=== PATIENT | female | born 2000 | race Caucasian/White ===

== ENCOUNTER → 2024-01-26 15:05 | Outpatient (CLI) | payer OTHER, MEDICAID, SELFPAY ==
[2024-01-26 15:38] LABS: Add Manual Diff / Slide Review NO; Basophils Absolute Auto 0 /uL (0-100); Basophils Percent Auto 0.4 % (0-2); Eosinophils Absolute Auto 0 /uL (0-450); Eosinophils Percent Auto 0.2 % (2-4); Hematocrit 35.3 % (36-46); Hemoglobin 11.9 g/dL (12.0-16.0); Lymphocytes Absolute Auto 1700 /uL (1100-4500); Lymphocytes Percent Auto 15.9 % (25-40); Mean Corpuscular HGB Conc 33.9 % (30-36); Mean Corpuscular Volume 85.7 fL (80-100); Monocytes Absolute Auto 900 /uL (0-900); Monocytes Percent Auto 8.2 % (3-14); Neutrophils Absolute Auto 8000 /uL (1500-7000); Neutrophils Percent Auto 75.3 % (50-75); Platelet Count 267 X10^3/uL (150-400); Red Blood Cell Count 4.11 X10^6/uL (4.0-5.2); Red Cell Distribution Width 13.6 % (11.6-14.8); White Blood Cell Count 10.6 X10^3/uL (4.5-11.0)
[2024-01-27 15:23] LABS: HIV 1 & 2 Ab/Ag 4th Gen Combo NEGATIVE (NEGATIVE); Hep C Virus Ab w/Reflex Quant NEGATIVE s/c (NEGATIVE); Hepatitis B Surface Antigen NEGATIVE s/c (NEGATIVE); Rubella Antibody IgG 11.9 IU/mL (>15)
[2024-01-28 06:36] LABS: RPR Screen Non Reactive (Non Reactive)
[2024-01-28 07:11] LABS: Varicella IgG Antibody Reactive (Non Reactive)
== END ==
PROVIDERS: Referring Provider Specialist; Visit Provider Specialist
DX: Z34.00 Encounter for supervision of normal first pregnancy, unspecified trimester (principal)
CPT/HCPCS: 36415; 80055; 86787; 86803; 86850; 86900; 86901; 87086; 87389

== ENCOUNTER → 2024-04-21 11:52 | Outpatient (CLI) | payer OTHER, SELFPAY ==
--- NOTE | 2024-04-21 11:53 | DI.US.S_ITS ---
PROCEDURE: US OB >= 14 WEEKS FETUS INDICATIONS: 20 week anatomy scan OUTSIDE/PRIOR DATING DATA: Last menstrual period (LMP): 11/28/2023. LMP-based estimated date of delivery (LE): 09/03/2024 working LE. First dating scan (date and location): 01/26/2024. Estimated date of delivery (LE) from first dating scan: 08/31/2024. TECHNIQUE: Real-time scanning was performed of the fetus, with image documentation and biometric measurements. COMPARISON: [facility], US, OB >= 14 WEEKS FETUS, 03/22/2024, 15:27. FINDINGS: General: A single living intrauterine gestation is present. Presentation: Transverse. Placenta: Placental position is anterior fundal , without previa. Amniotic fluid index: 13.2 cm, normal range is 5-24 cm. Single deepest vertical pocket is 4.7 cm. heart rate: 150 beats per minute. Maternal cervical canal: 4.6 cm long. Normal lower limit is 2.5 cm. biometrics: Biparietal diameter: 4.9 centimeters, 20 weeks and 5 days Head circumference: 18.9 centimeters, 21 weeks and 1 day Abdominal circumference: 17.9 centimeters, 22 weeks and 5 days Femur length: 3.7 centimeters, 21 weeks and 5 days Clinically estimated gestational age: 20 weeks and 5 days Composite gestational age from present scan: 21 weeks and 4 days Estimated weight and percentile: 474 grams, 98 percent Anatomic survey: Neuro: Ventricles are non-dilated at less than 10 mm. Cisterna magna is normal at 3-11 mm. Cerebellum is normal in size and morphology. Nuchal skin fold: Normal at less than 6 mm between 14-21 weeks gestational age. Face: Nose and lips, facial profile are normal. Spine: Skin line overlying the spine is not well seen. Heart: four-chamber view and LVOT are within normal limits. RVOT probably normal, but not well seen on this single image. Diaphragm: Diaphragm is intact. Stomach: Left-sided stomach is present. Kidneys: No hydronephrosis. Normal is less than 5 mm in 2nd trimester, less than 7 mm in 3rd trimester. Cord: 3-vessel cord has orthotopic insertion. Bladder: Normal in size. Extremities: All 4 extremities identified. IMPRESSION: Living intrauterine gestation at 20 weeks and 5 days. EFW is at the 98 percent, greater than expected, driven primarily by the large abdominal circumference. Follow-up is recommended for growth. Normal TITUS. RVOT and skin line overlying the sacral spine not well seen. Follow-up recommended. Dictated by: Jordan Alfaro M.D. on 04/22/2024 at 7:57 Approved by: Jordan Alfaro M.D. on 04/22/2024 at 8:01
[2024-04-24 10:08] LABS: Candida species Positive (Negative); Gardnerella vaginalis Positive (Negative); Trichomoas vaginalis Negative (Negative)
== END ==
LOC: US 11:52
PROVIDERS: Referring Provider Obstetrics & Gynecology; Visit Provider Obstetrics & Gynecology
DX: O99.891 Other specified diseases and conditions complicating pregnancy (principal); Z3A.20 20 weeks gestation of pregnancy; N89.8 Other specified noninflammatory disorders of vagina
CPT/HCPCS: 76811; 87480; 87510; 87660

== ENCOUNTER → 2024-05-19 08:53 | Outpatient (CLI) | payer OTHER, SELFPAY ==
[2024-05-19 10:21] LABS: Hematocrit 33.8 % (36-46); Hemoglobin 11.2 g/dL (12.0-16.0)
[2024-05-19 10:40] LABS: GTT (PREG) 1 Hour PP 50gm Dose 102 mg/dL (76-139)
== END ==
PROVIDERS: Referring Provider Obstetrics & Gynecology; Visit Provider Obstetrics & Gynecology
DX: Z34.02 Encounter for supervision of normal first pregnancy, second trimester (principal); Z3A.26 26 weeks gestation of pregnancy
CPT/HCPCS: 36415; 82950; 85014; 85018; 86850

== ENCOUNTER 2024-07-26 17:25 | Outpatient (CLI) | payer OTHER, SELFPAY | END 2024-07-26 17:55 | disposition home or self-care (01) | LOC: OB 07-27 06:32 | PROVIDERS: PCP Family Medicine; Referring Provider Obstetrics & Gynecology; Visit Provider Obstetrics & Gynecology | DX: O36.8130 Decreased fetal movements, third trimester, not applicable or unspecified (principal); Z3A.34 34 weeks gestation of pregnancy | CPT/HCPCS: 59025; G0378; G0379 ==

== ENCOUNTER → 2024-08-11 14:39 | Outpatient (CLI) | payer OTHER, SELFPAY ==
[2024-08-12 12:18] LABS: Strep Grp B PCR NEG for Grp B Strep
== END ==
PROVIDERS: PCP Family Medicine; Visit Provider Specialist
DX: Z34.93 Encounter for supervision of normal pregnancy, unspecified, third trimester (principal); Z3A.36 36 weeks gestation of pregnancy
CPT/HCPCS: 87653

== ENCOUNTER 2024-08-29 01:41 | Inpatient (IN) | payer OTHER, SELFPAY ==
[2024-08-29 02:19] VITALS: BP 120/82
[2024-08-29] MEDS: LACTATED RINGERS 1,000 ML 100 ML IV (02:40)
[2024-08-29 03:02] LABS: Add Manual Diff / Slide Review NO; Basophils Absolute Auto 100 /uL (0-100); Basophils Percent Auto 0.6 % (0-2); Eosinophils Absolute Auto 0 /uL (0-450); Eosinophils Percent Auto 0.1 % (2-4); Hematocrit 31.9 % (36-46); Hemoglobin 10.7 g/dL (12.0-16.0); Lymphocytes Absolute Auto 2200 /uL (1100-4500); Lymphocytes Percent Auto 13.2 % (25-40); Mean Corpuscular HGB Conc 33.4 % (30-36); Mean Corpuscular Hemoglobin 27.9 PG (26-34); Mean Corpuscular Volume 83.4 fL (80-100); Monocytes Absolute Auto 1100 /uL (0-900); Monocytes Percent Auto 6.3 % (3-14); Neutrophils Absolute Auto 13300 /uL (1500-7000); Neutrophils Percent Auto 79.8 % (50-75); Platelet Count 270 X10^3/uL (150-400); Red Blood Cell Count 3.83 X10^6/uL (4.0-5.2); Red Cell Distribution Width 14.8 % (11.6-14.8); White Blood Cell Count 16.6 X10^3/uL (4.5-11.0)
--- NOTE | 2024-08-29 04:27 | PM.AN.REGBLK ---
[facility] <Milagros Bennett CRNA - Last Filed: 08/30/24 12:38> Pre-procedure PMH/ROS narrative: Healthy 23yr old requesting CSE for labor. G1. No problems with PSH/Anesthesia history narrative: Appendectomy ASA Class: II Labs: Hct 31.9 % (36-46) L 08/29/24 02:40 Plt Count 270 X10^3/uL (150-400) 08/29/24 02:40 Medications: Current Medications Generic Name Dose Route Start Last Admin Trade Name Freq PRN Reason Stop Dose Admin Calcium Carbonate 1,000 mg 08/29/24 02:50 Calcium Carbonate 500 Mg Tab PO Q2HR PRN Dyspepsia Carboprost Tromethamine 250 mcg 08/29/24 02:50 Carboprost 250 Mcg/Ml Ampul IM Q90M PRN Bleeding Diphenhydramine HCl 25 mg 08/29/24 04:30 Diphenhydramine 50 Mg/Ml Vial IV 08/30/24 04:31 Q30MIN JAY Fentanyl 50 mcg 08/29/24 02:50 Fentanyl 100 Mcg/2 Ml Inj IV Q1H PRN Pain, Moderate (4-6) Lactated Ringer's 1,000 mls @ 100 mls/hr 08/29/24 03:00 08/29/24 02:40 Lactated Ringers IV 08/29/24 12:59 100 mls/hr CONT JAY Administration Oxytocin/Lactated Ringer's 30 unit in 500 mls @ 200 mls/hr 08/29/24 02:50 Oxytocin Premix IV CONT PRN Bleeding Protocol Tranexamic Acid 1,000 mg/ 100 mls @ 600 mls/hr 08/29/24 02:50 Sodium Chloride IV NOW PRN Bleeding Lidocaine HCl 20 ml 08/29/24 02:50 Lidocaine 1% 20 Ml INJ INTRA-OP PRN Post Delivery Methylergonovine Maleate 0.2 mg 08/29/24 02:50 Methylergonovine 0.2 Mg Tablet PO Q6HR PRN Heavy Bleeding Methylergonovine Maleate 0.2 mg 08/29/24 02:50 Methylergonovine 0.2 Mg/Ml Vial IM NOW PRN Bleeding Metoclopramide HCl 10 mg 08/29/24 04:24 Metoclopramide 10 Mg/2 Ml Inj IV 08/30/24 04:25 Q4H PRN Nausea Mineral Oil 30 ml 08/29/24 02:50 Mineral Oil 30 Ml Udc TOP PRN PRN Version Misoprostol 800 mcg 08/29/24 02:50 Misoprostol 200 Mcg Tablet MO NOW PRN Bleeding Misoprostol 400 mcg 08/29/24 02:50 Misoprostol 200 Mcg Tablet SL NOW PRN Bleeding Nalbuphine HCl 5 mg 08/29/24 04:24 Nalbuphine 20 Mg/Ml Ampul IV Q6H PRN Pruritus Naloxone HCl 0.2 mg 08/29/24 02:50 Naloxone 0.4 Mg/Ml Vial IV Q2MIN PRN Opiate Reversal Naloxone HCl 0.4 mg 08/29/24 04:24 Naloxone 0.4 Mg/Ml Vial IV Q2MIN PRN Opiate Reversal Ondansetron HCl 4 mg 08/29/24 02:50 Ondansetron 4 Mg/2 Ml Inj IV Q4HR PRN Nausea And Vomiting Ondansetron HCl 4 mg 08/29/24 05:00 Ondansetron 4 Mg/2 Ml Inj IV 08/29/24 09:01 Q4HR JAY Oxytocin 10 unit 08/29/24 02:50 Oxytocin 10 Unit/Ml Vial IM NOW PRN Bleeding Allergies: Allergies Allergy/AdvReac Type Severity Reaction Status Date / Time No Known Drug Allergies Allergy Verified 08/29/24 02:21 Procedure Insertion date: 08/29/24 Insertion time: 03:54 Prep/Local: 1% lidocaine (chloroprep) Interspace: L3-4 Patient position: sitting Needle: 17 gauge Tuohy (27g Bala) Loss of resistance with: saline FANG at (cm): 8 Catheter placed at SKIN (cm): 14 Catheter in SPACE (cm): 6 Initial Medications TEST DOSE time: 03:56 TEST DOSE: 1.5% lidocaine with epinephrine 1:200k (mL): 3 BOLUS DOSE time: 03:53 BOLUS DOSE (mL): 1 BOLUS DOSE med: 0.25% bupivacaine (CSE dose) Infusion INFUSION: 0.125% bupivacaine and with fentanyl 2 mcg/mL Initial rate (mL/hr): 10 Subsequent interventions: Remaining 2 cc test dose given at 0400 5cc .25% marcaine at 0650 Post-procedure Anesthesia date START: 08/29/24 Anesthesia time START: 03:32 <Lauren Mcdowell CRNA - Last Filed: 08/29/24 17:06> Post-procedure Anesthesia date END: 08/29/24 Anesthesia time END: 10:15 Post-procedure Anesthesia Assessment: Yes CV function: HR/BP stable, Yes Resp function: RR/sat/airway adequate, Yes Post-op hydration adequate, Yes Pain control adequate, Yes Nausea & vomiting absent, Yes Temperature > 36 C, Yes Mental status appropriate and Yes Anesthesia complications
[2024-08-29] MEDS: OXYTOCIN PREMIX 30 UNIT/500 ML PLAST..BAG IV (08:53)
--- NOTE | 2024-08-29 09:07 | P.HPOB_ITS ---
OB HPI Date/Time Date of admission: 08/29/24 Date Patient Seen: 08/29/24 Time Patient Seen: 08:30 History of Present Condition Chief complaint: labor LE Calculator 2 Estimated Delivery Date Method Current WG Current Estimate 09/03/24 LMP (Certain) 39w 2d Other Estimates 08/31/24 Ultrasound #1 39w 5d Estimated Gestational Age (weeks): 39+2 : 1 Para: 0 Narrative: Spontaneous rupture of membranes just after midnight, clear fluid 3 cm dilated on admission care: good care, initiated at week # (8), number of visits (12) and pounds weight gain (49) Dating criteria OB: LMP confirmed by 1st trimester US Ultrasounds: normal 1st trimester US and normal mid trimester US Abnormal ultrasound findings: LGA Obstetrical complications: other (LGA) Medical complications OB: none Preadmission Labs Last OB Lab Results: 2 Blood Type B Positive 08/29/24 02:40 Antibody Screen Negative 08/29/24 02:40 Hct 31.9 % (36-46) L 08/29/24 02:40 Hgb 10.7 g/dL (12.0-16.0) L 08/29/24 02:40 Hep Bs Antigen Negative s/c (NEGATIVE) 01/26/24 15:13 Hepatitis C Antibody Negative s/c (NEGATIVE) 01/26/24 15:13 Rubella Antibody 11.9 IU/mL (>15) L 01/26/24 15:13 VZV IgG Antibody Reactive (Non Reactive) 01/26/24 15:13 Glucose 1 Hr 50 gm 102 mg/dL (76-139) 05/19/24 09:45 Group B Strep (PCR) Neg for grp b strep 08/11/24 14:39 -: Chlamydia screen: negative, Gonorrhea screen: negative and Urine: negative -: PAP smear: Normal External Labs -: Urine: negative Evaluation Evaluation Baseline heart rate: 135 Variability: Moderate (11-25) monitor accelerations: Present Monitor Decelerations: Late (few) Contraction Frequency (minutes): 3 Uterine Contraction Intensity: Strong/Firm Status: Category l Dilation (cm): 10 Effacement (%): 100 station: 0 PFSH Medical History (Updated 08/04/24 @ 09:04 by Odessa Pierre MD) H. pylori infection Chronic sinusitis Surgical History (Updated 01/24/24 @ 13:08 by Jessica Stock RN) History of appendectomy (~2018) Family History (Updated 01/24/24 @ 13:30 by Jessica Stock RN) Father Hypertension History of appendectomy Mother History of appendectomy Pre-eclampsia Brother Low bone density Bone fracture Social History marital status: number of children: 0 household members: spouse lives independently: Yes caregiver/support person: No housing: house pets and animals: No education level: college occupational status: employed current occupational exposures/hazards: Yes special mario needs: No travel history: recent seatbelt use: always helmet use: No water heater temp set < 120 deg: Yes working smoke detector in home: Yes fire extinguisher in home: Yes carbon monox detector in home: Yes firearms in home: No do you feel safe at home: Yes Smoking Status: Never smoker second hand exposure: No alcohol intake: never substance use type: does not use during the past year weight has: remained stable well-balanced diet: daily or most days daily servings fruits/ve or more times/day caffeine: Yes (not since becoming , but usually likes a single espresso in AM) Type(s) of exercise: aerobic Meds Home Medications and Allergies Home Medications Medication Instructions Recorded Confirmed Type vitamin-ferrous sulfate 1 tab PO DAILY 01/24/24 08/29/24 History 27 mg iron-folic acid 0.8 mg tablet valacyclovir 500 mg tablet 500 mg PO DAILY herpes suppression 08/04/24 08/29/24 Rx (Valtrex) #30 tabs Allergies Allergy/AdvReac Type Severity Reaction Status Date / Time No Known Drug Allergies Allergy Verified 08/29/24 02:21 OB Exam Narrative Exam Narrative: Generally: Comfortable with epidural Fundal height: 42 cm Estimated weight 9-1/2 lb Extremities: 1+ edema Objective Labs 08/29/24 02:40 Labs: Laboratory Results - last 24 hr 08/29/24 02:40 WBC 16.6 H RBC 3.83 L Hgb 10.7 L Hct 31.9 L MCV 83.4 MCH 27.9 MCHC 33.4 RDW 14.8 Plt Count 270 Neut % (Auto) 79.8 H Lymph % (Auto) 13.2 L Sully % (Auto) 6.3 Eos % (Auto) 0.1 L Baso % (Auto) 0.6 Neut # (Auto) 83917 H Lymph # (Auto) 2200 Sully # (Auto) 1100 H Eos # (Auto) 0 Baso # (Auto) 100 Blood Type B Positive Antibody Screen Negative Assessment and Plan Assessment and Plan Assessment and Plan narrative: Assessment: 23-year-old 1 para 0 at 39-,2/7 weeks gestation entering second stage of labor LGA GBS negative Plan: Expected management to spontaneous vaginal delivery No operative delivery Time-Based Coding :: [TOTAL MINUTES] spent with patient and on the chart (including review of chart, obtaining history, exam, reviewing outside data, placing orders, documenting exam and treatment plan, and counseling patient) on [DATE].
[2024-08-29] MEDS: DERMOPLAST SPRAY 20% 60 ML 1 SPRAY TOP (12:05)
[2024-08-29] MEDS: WITCH HAZEL/GLYCERIN PADS 1 EACH TOP (12:05)
--- NOTE | 2024-08-29 15:58 | PM.OBPRVD ---
Events: Other (LGA) Labor & Delivery Delivery date: 08/29/24 Delivery Time: 09:59 Intrapartal Events: None Cervical ripening method: none Induction method: none Delivery augmentation: pitocin Route of delivery: Episiotomy description: None L&D Laceration Description: Perineal - 2nd Degree and Vaginal - 2nd Degree Delivery repair: vicryl and chromic Quantitative Blood Loss: 468 Anesthesia Type: Epidural Complications: None Narrative: Patient complete and pushed for 1 hour and 27 minutes. At 9:59 a.m., a live male infant delivered spontaneously in the JAMSHID presentation. No nuchal cord. The remainder of the body delivered with some difficulty but no shoulder dystocia. The was placed on mom's abdomen. After the cord stopped pulsing, the cord was double clamped and cut. Cord bloods were obtained. Pitocin was given in the IV fluids. The placenta delivered intact with a three-vessel cord at 10:12 a.m.. Fundus was massaged to firm. A second-degree vaginal/perineal laceration was repaired in the usual fashion with 2-0 Vicryl and 2-0 chromic. Apgars 9 at 1 minute and 9 at 5 minutes. weight 9 lb 9.7 oz. Epidural analgesia. . Mom and stable to recovery. [place] Baby 1: Infant gender: Male Presentation: vertex Position: Left Occiput Anterior Placenta delivery description: Spontaneous Cord Vessel Description: 3 Vessels and Clamped/Cut (After the cord stopped pulsing) score (1 min): 9 score (5 min): 9 weight: 9 lb 9.7 oz Plan for aftercare: Routine care
[2024-08-30] MEDS: IBUPROFEN 600 MG TABLET PO (01:08)
[2024-08-30 14:46] VITALS: BP 115/62; PULSE 80; RESP 16; TEMP 36.6
== END 2024-08-30 14:46 | disposition home or self-care (01) | DRG 560 ==
PROVIDERS: Admitting Provider Family Medicine; PCP Family Medicine; Referring Provider Family Medicine; Visit Provider Family Medicine
DX: O42.02 Full-term premature rupture of membranes, onset of labor within 24 hours of rupture (principal); O36.63X0 Maternal care for excessive fetal growth, third trimester, not applicable or unspecified; Z3A.39 39 weeks gestation of pregnancy; Z37.0 Single live birth; O70.1 Second degree perineal laceration during delivery
CPT/HCPCS: 36415; 59050; 85025; 86850; 86900; 86901; G0379; J2590